=== PATIENT | male | born 2000 | race Caucasian/White ===

== ENCOUNTER 2023-08-03 02:00 | Emergency (ER) | payer OTHER ==
[~2023-08-03] VITALS: Ht 177.8 cm; Wt 90.7 kg
[2023-08-03 02:13] VITALS: BP 139/72; PULSE 84; RESP 18; TEMP 98.4; O2SAT 100
[2023-08-03] MEDS ORDERED: AMOX-1230 PO (02:52)
[2023-08-03] MEDS ORDERED: NAPR-337 PO (02:52)
[2023-08-03 03:00] VITALS: BP 130/72; PULSE 82; RESP 18; TEMP 98; O2SAT 100
== END 2023-08-03 03:00 | disposition home or self-care (01) ==
LOC: MED 02:00
DX: H65.191 Other acute nonsuppurative otitis media, right ear (principal); Z79.899 Other long term (current) drug therapy
CPT/HCPCS: 99283